=== PATIENT | female | born 1940 | race Hispanic/Latino ===

== ENCOUNTER 2019-08-05 10:14 | Observation (INO) | payer OTHER, MEDICARE ==
[~2019-08-05] VITALS: Ht 142.2 cm; Wt 46.9 kg
[~2019-08-05 10:14] MED LIST: ATOR10TA69 PO; CYCL30DR OP; ESOM40CA54 PO; LISI40TA4 PO; METF-445 PO; RALO60TA13 PO
[2019-08-05 10:57] LABS: CREATININE 0.8 mg/dL (0.5-1.5); POTASSIUM 3.9 mmol/L (3.5-5.1)
[2019-08-05 11:01] LABS: BASOPHILS % (AUTO) 0.5 % (0.0-5.0); EOSINOPHILS % (AUTO) 1.6 % (0.0-8.0); HEMATOCRIT 32.3 % (36-48); LYMPHOCYTES % (AUTO) 16.7 % (21.0-51.0); MEAN CORPUSCULAR HEMOGLOBIN 32.6 pg (27.0-33.0); MEAN CORPUSCULAR HGB CONC 33.8 g/dL (32.0-36.0); MEAN CORPUSCULAR VOLUME 96.4 fL (79-99); MONOCYTES % (AUTO) 9.8 % (3.0-13.0); NEUTROPHILS % (AUTO) 71.4 % (40.0-77.0); NUCLEATED RED BLOOD CELLS 0.1 % (0.0-0.19); PLATELET COUNT (AUTO) 242 K/uL (130-400); RED BLOOD CELL COUNT(AUTO) 3.35 MIL/uL (4.00-5.50); RED CELL DISTRIBUTION WIDTH 15.1 % (11.0-15.5); WHITE BLOOD COUNT (AUTO) 9.8 K/uL (4.8-10.8)
[2019-08-05 11:02] LABS: ALBUMIN 3.1 g/dL (3.5-5.0); BILIRUBIN,TOTAL 0.4 mg/dL (0.2-1.0); TOTAL PROTEIN, SERUM 6.9 g/dL (6.0-8.3)
[2019-08-05 11:07] LABS: APPEARANCE,URINE Clear (CLEAR); BILIRUBIN,URINE Negative (NEGATIVE); COLOR,URINE Yellow (YELLOW); GLUCOSE, URINE (UA) Negative (NEGATIVE); KETONES,URINE Negative (NEGATIVE); LEUKOCYTE ESTERASE ,URINE Negative (NEGATIVE); NITRATE,URINE Negative (NEGATIVE); OCCULT BLOOD,URINE Negative (NEGATIVE); PH,URINE 5.5 (5.0-8.0); PROTEIN,URINE Negative (NEGATIVE); UROBILINOGEN,URINE 0.2 mg/dL (0.2-1.0)
[2019-08-05 11:20] LABS: B-TYPE NATRIURETIC PEPTIDE 275 pg/mL (0-100)
[2019-08-05] MEDS ORDERED: FUROSEMIDE 10 MG/ML 2ML VIAL ONE (11:52)
[2019-08-05] MEDS ORDERED: CEFTRIAXONE SODIUM 1 GM ONE (12:05)
[2019-08-05] MEDS ORDERED: AZITHROMYCIN 500MG+NS 250ML 250 ML IV ONE (12:05)
[2019-08-05] MEDS ORDERED: SODIUM CHLORIDE 0.9% 50 ML IV ONE (12:06)
[2019-08-05] MEDS ORDERED: SODIUM CHLORIDE 0.9% 250 ML IV ONE (13:17)
[2019-08-05 13:28] VITALS: BP 141/59
[2019-08-05] MEDS ORDERED: COMPOUND IV MISC 1 EACH IVSOLN MISC PRN (14:30)
[2019-08-05] MEDS ORDERED: DONE5TAB33 PO (14:40)
[2019-08-05] MEDS ORDERED: ESCI5SOL4 PO (14:40)
[2019-08-05] MEDS ORDERED: PANT40TA25 PO (14:40)
[2019-08-05] MEDS ORDERED: LIDOCAINE HCL-MPF 1% 2ML VIAL IV PRN (14:45)
[2019-08-05] MEDS ORDERED: GLUCAGON 1MG KIT 1 MG ML IM PRN (14:45)
[2019-08-05] MEDS ORDERED: ACETAMINOPHEN 325 MG TAB PO PRN ×2 (14:45)
[2019-08-05] MEDS ORDERED: POTASSIUM CHLORIDE 20MEQ/100ML 100 ML IV PRN (14:45)
[2019-08-05] MEDS ORDERED: LACTULOSE 20 GM/30 ML UDCUP PO PRN (14:45)
[2019-08-05] MEDS ORDERED: GUAIFENESIN-DM 200/20 MG 10 ML PO PRN (14:45)
[2019-08-05] MEDS ORDERED: ONDANSETRON HCL 4 MG/2 ML VIAL IV PRN (14:45)
[2019-08-05] MEDS ORDERED: MAG HYDROX/AL HYDROX/SIMETH ES 30 ML SUSP UDCUP PO PRN (14:45)
[2019-08-05] MEDS ORDERED: POTASSIUM CHLORIDE 10% ELIXIR 20 MEQ/15 ML UDCUP PO PRN (14:45)
[2019-08-05] MEDS ORDERED: NITROGLYCERIN 0.4 MG SL TAB SL PRN (14:45)
[2019-08-05] MEDS ORDERED: DEXTROSE 50%-WATER 50 ML DISP.SYRIN IV PRN (14:45)
[2019-08-05] MEDS ORDERED: DIPHENHYDRAMINE HCL 25 MG CAPSULE PO PRN (14:45)
[2019-08-05] MEDS: AZITHROMYCIN 250 MG in SODIUM CHLORIDE 0.9% 100 ML IV SCH (15:00)
[2019-08-05 15:41] VITALS: BP 123/55
[2019-08-05] MEDS: INSULIN HUMULIN R 100 UNIT/ML 3ML SQ SCH ×2 (16:30→21:00)
[2019-08-05] MEDS: IPRATROPIUM/ALBUTEROL SULFATE 3 ML SOLUTION IH SCH ×2 (18:19→23:05)
[2019-08-05 20:00] VITALS: BP 100/60
[2019-08-05] MEDS: FUROSEMIDE 10 MG/ML 4ML VIAL IV SCH (21:26)
[2019-08-06] VITALS: BP 127/58
[2019-08-06 04:00] VITALS: BP 102/55
[2019-08-06 05:47] LABS: BASOPHILS % (AUTO) 0.7 % (0.0-5.0); EOSINOPHILS % (AUTO) 0.8 % (0.0-8.0); LYMPHOCYTES % (AUTO) 20.1 % (21.0-51.0); MEAN CORPUSCULAR HEMOGLOBIN 32.1 pg (27.0-33.0); MEAN CORPUSCULAR HGB CONC 33.8 g/dL (32.0-36.0); MONOCYTES % (AUTO) 10.7 % (3.0-13.0); NEUTROPHILS % (AUTO) 67.7 % (40.0-77.0); PLATELET COUNT (AUTO) 268 K/uL (130-400); RED BLOOD CELL COUNT(AUTO) 3.26 MIL/uL (4.00-5.50); RED CELL DISTRIBUTION WIDTH 15.5 % (11.0-15.5); WHITE BLOOD COUNT (AUTO) 8.7 K/uL (4.8-10.8)
[2019-08-06 05:52] LABS: CREATININE 0.9 mg/dL (0.5-1.5); POTASSIUM 3.3 mmol/L (3.5-5.1)
[2019-08-06] MEDS: IPRATROPIUM/ALBUTEROL SULFATE 3 ML SOLUTION IH SCH ×4 (06:15→23:27)
[2019-08-06] MEDS: INSULIN HUMULIN R 100 UNIT/ML 3ML SQ SCH ×4 (07:30→21:41)
[2019-08-06 08:00] VITALS: BP 96/52
--- NOTE | 2019-08-06 08:51 | NUR ---
PATIENT UPDATE NO CHEST PAIN, NO SHORTNESS OF BREATH. STARTED COUGHING AGAIN WHEN SHE STARTED DRINKING WATER AFTER A BREATHING TREATMENT. BIBASILAR CRACKLES PER AUSCULTATION, ON LASIX 40 MG IV Q 12 HRS FOR A BNP OF 275. MONITORED CLOSELY FOR BP TRENDS SINCE SHE RUNS IN THE LOW 100'S SYSTOLIC, GETS UP TO THE RESTROOM WITH ASSIST. DAUGHTER STAYED AT THE BEDSIDE LAST NIGHT. K THIS AM 1T 3.3, 20MEQ KCL ELIXIR GIVEN WITH ORANGE JUICE, TOLERATED WELL- PT ON HYPOKALEMIA PROTOCOL.
[2019-08-06] MEDS: CALCIUM 600 + VITAMIN D 400 TABLET PO SCH (10:33)
[2019-08-06] MEDS: PREDNISONE 20 MG TABLET PO SCH (10:33)
[2019-08-06] MEDS: FUROSEMIDE 10 MG/ML 4ML VIAL IV SCH (10:33)
[2019-08-06] MEDS: ENOXAPARIN SODIUM 30 MG/0.3 ML SQ SCH (10:34)
[2019-08-06] MEDS: POTASSIUM CHLORIDE 20 MEQ ERTAB PO PRN ×2 (10:36→21:53)
[2019-08-06 11:54] VITALS: BP 91/55
[2019-08-06] MEDS ORDERED: PHARMACY COMMUNICATION MISC SCH (12:00)
[2019-08-06] MEDS ORDERED: CEFTRIAXONE SODIUM 1 GM IVP SCH (13:15)
[2019-08-06] MEDS: AZITHROMYCIN 250 MG in SODIUM CHLORIDE 0.9% 100 ML IV SCH (13:54)
[2019-08-06 16:00] VITALS: BP 86/60
--- NOTE | 2019-08-06 16:45 | NUR ---
cm note met with patient and states resides at home with daughter tristen, pt uses cane at times for ambulation, no other dme. has provider 26hrs/week. dc plan is back to home. Addendum: 08/06/19 at 1647 by SONIA BURGER CM Amended: Links added.
[2019-08-06 20:21] VITALS: BP 106/55
[2019-08-07 00:31] VITALS: BP 94/50
[2019-08-07 04:43] VITALS: BP 121/64
[2019-08-07 05:41] LABS: BASOPHILS % (AUTO) 0.2 % (0.0-5.0); EOSINOPHILS % (AUTO) 0.1 % (0.0-8.0); HEMATOCRIT 29.9 % (36-48); LYMPHOCYTES % (AUTO) 21.1 % (21.0-51.0); MEAN CORPUSCULAR HEMOGLOBIN 32.4 pg (27.0-33.0); MEAN CORPUSCULAR HGB CONC 33.6 g/dL (32.0-36.0); MEAN CORPUSCULAR VOLUME 96.3 fL (79-99); MONOCYTES % (AUTO) 10.5 % (3.0-13.0); NEUTROPHILS % (AUTO) 68.1 % (40.0-77.0); PLATELET COUNT (AUTO) 247 K/uL (130-400); RED BLOOD CELL COUNT(AUTO) 3.11 MIL/uL (4.00-5.50); RED CELL DISTRIBUTION WIDTH 15.2 % (11.0-15.5); WHITE BLOOD COUNT (AUTO) 10.4 K/uL (4.8-10.8)
[2019-08-07 06:00] LABS: CREATININE 0.9 mg/dL (0.5-1.5); MAGNESIUM 1.4 mg/dL (1.80-2.40); PHOSPHORUS 2.8 mg/dL (2.5-4.9); POTASSIUM 4.5 mmol/L (3.5-5.1)
[2019-08-07] MEDS: IPRATROPIUM/ALBUTEROL SULFATE 3 ML SOLUTION IH SCH ×2 (06:17→11:09)
[2019-08-07] MEDS: INSULIN HUMULIN R 100 UNIT/ML 3ML SQ SCH ×2 (06:36→11:30)
--- NOTE | 2019-08-07 07:30 | NUR ---
NOTE AAOX3. DENIES PAIN OR DISTRESS. WAS SUPPOSED TO GO HOME YESTERDAY ACCORDING TO FAMILY BUT ECHO REPORT WAS NOT OUT. REFER TO CHART FOR RESULTS. POSSIBLE DC HOME TODAY. SHE HAS BEEN AMBULATING IN THE ROOM AND SHE DENIES ANY SOB. BBS SLIGHT COARSENESS TO LOWER LOBES.
[2019-08-07 08:12] VITALS: BP 121/60
[2019-08-07] MEDS ORDERED: FUROSEMIDE 20 MG TABLET PO SCH (09:00)
[2019-08-07] MEDS: PREDNISONE 20 MG TABLET PO SCH (10:39)
[2019-08-07] MEDS: CALCIUM 600 + VITAMIN D 400 TABLET PO SCH (10:39)
[2019-08-07] MEDS: ENOXAPARIN SODIUM 30 MG/0.3 ML SQ SCH (10:39)
--- NOTE | 2019-08-07 11:25 | NUR ---
DYSPHAGIA EVAL COMPLETED. -S/S OF ASPIRATION. RECOMMEND REGULAR TEXTURE, THIN LIQUIDS; PILLS WHOLE WITH LIQUIDS. SAFE SWALLOW PRECAUTIONS OF HEAD AT NEUTRAL POSITION, SLOW RATE, SMALL BITES AND SIPS PUT IN PLACE DURING P.O. ALL QUESTIONS ANSWERED AT THIS TIME. KETTLE FRY COOK OPERATOR COORDINATED CARE WITH NURSE FLORENTIN. NURSE REPORTS Pt HAS BEEN TOLERATING DIET TAKING PILLS WITH NO DIFFICULTY. Addendum: 08/07/19 at 1127 by RACHELE GRANT [facility] Amended: Links added.
[2019-08-07] MEDS ORDERED: MAGNESIUM 2GM PREMIX 50ML 50 ML IV SCH (11:45)
[2019-08-07 12:00] VITALS: BP 102/52
--- NOTE | 2019-08-07 13:19 | NUR ---
RD NOTIFICATION RD CONSULTED DUE TO POOR PO. DIET: HEART HEALTHY. PO INTAKE 75% AND HAS GOOD APPETITE, PER PT. NO COMPLAINTS OF N/V/C/D. NO DIFFICULTIES CHEWING OR SWALLOWING FOOD/LIQUIDS AT THIS TIME. LBM: 08/07. SKIN INTACT, NO EDEMA NOTED. LABS REVIEWED. MEDS REVIEWED. NO SIGNIFICANT WEIGHT CHANGES NOTED. MILD MUSCLE/ FAT LOSS NOTED. RD RECOMMENDS TO CONTINUE CURRENT DIET ENCOURAGE ADEQUATE PO INTAKE AT ALL MEALS RD WILL CONTINUE TO FOLLOW UP NEEDED, THANK YOU. Addendum: 08/07/19 at [address] Amended: Links added.
--- NOTE | 2019-08-07 14:45 | NUR ---
DISCHARGE DISCHARGE INSTRUCTIONS GIVEN TO PATIENT AT THIS TIME. SPOKE TO SURJIT CLEMENTS ABOUT DC HOME MEDS FOR SHE ONLY RESUMED HOME MEDS AND DID NOT FIND ANY SCRIPTS. WAS INFORMED THERE WOULD BE NO PRESCRIPTIONS ONLY RESUME HOME MEDS. INFORMED PATIENT AND FAMILY WELL. STABLE UPON LEAVING. NO SOB OR DISTRESS.
== END 2019-08-07 14:54 | disposition home or self-care (01) ==
LOC: EDH 10:14 → EDHIP 11:50 → 3CH 13:08
PROVIDERS: ADMIT Internal Medicine Critical Care Medicine; ATTEND Internal Medicine Critical Care Medicine
DX: J44.1 Chronic obstructive pulmonary disease with (acute) exacerbation (principal); I11.0 Hypertensive heart disease with heart failure; I50.9 Heart failure, unspecified; E11.9 Type 2 diabetes mellitus without complications; E78.5 Hyperlipidemia, unspecified; M81.0 Age-related osteoporosis without current pathological fracture; E44.1 Mild protein-calorie malnutrition; F03.90 Unspecified dementia, unspecified severity, without behavioral disturbance, psychotic disturbance, mood disturbance, and anxiety; R00.1 Bradycardia, unspecified; E83.42 Hypomagnesemia; E87.5 Hyperkalemia; E87.6 Hypokalemia; Z96.653 Presence of artificial knee joint, bilateral; Z79.899 Other long term (current) drug therapy; Z88.0 Allergy status to penicillin
CPT/HCPCS: 36415 ×3; 71045; 80048 ×2; 80053; 81003; 82948 ×8; 83735 ×2; 83880; 84100; 84484; 85025 ×3; 87040 ×2; 92610; 93005; 93306; 94640 ×8; 94664; 96365; 96366; 96367; 96372 ×2; 96375 ×2; 97116 ×2; 97161; 99284; G0378 ×45; G8978; G8979; G8980; G8981; G8982; G8983; J0456 ×3; J0696 ×2; J1650 ×2; J1815; J1940 ×3; J3475; J7030

== ENCOUNTER 2020-03-10 12:03 | Emergency (ER) | payer OTHER, MEDICARE ==
[2020-03-10] MEDS ORDERED: SODIUM CHLORIDE 0.9% 1000ML 1,000 ML IV ONE (13:34)
[2020-03-10] MEDS ORDERED: PROPOFOL 10 MG/ML 20ML VIAL IV ONE (13:34)
[2020-03-10] MEDS ORDERED: HYDROCODONE/ACETAMINOPHEN 5/325 MG TAB ONE (15:36)
== END 2020-03-10 15:50 | disposition home or self-care (01) ==
LOC: EDH 12:03
DX: S52.501A Unspecified fracture of the lower end of right radius, initial encounter for closed fracture (principal); W18.39XA Other fall on same level, initial encounter; Y93.01 Activity, walking, marching and hiking; Y92.89 Other specified places as the place of occurrence of the external cause; Y99.8 Other external cause status
CPT/HCPCS: 25605; 36415; 73110; 80053; 85610; 85730; 93005; 99285; J2704; J7030

== ENCOUNTER 2020-03-16 | Emergency (ER) | payer OTHER, MEDICARE | END 2020-03-16 21:16 | disposition home or self-care (01) ==

== ENCOUNTER → 2020-11-14 | Outpatient (CLI) | payer OTHER, MEDICARE ==
[~2020-11-14] MED LIST changes: -CYCL30DR OP; +DONE5TAB33 PO; +ESCI5SOL4 PO; -ESOM40CA54 PO; -LISI40TA4 PO; +LISI40TA9 PO; +PANT40TA54 PO
== END | disposition home or self-care (01) ==
LOC: SHCH 08:51
PROVIDERS: ATTEND Internal Medicine Cardiovascular Disease
DX: I08.1 Rheumatic disorders of both mitral and tricuspid valves (principal); R06.09 Other forms of dyspnea
CPT/HCPCS: 93306; 93356

== ENCOUNTER 2022-11-21 12:49 | Emergency (ER) | payer OTHER, MEDICARE ==
[~2022-11-21] VITALS: Ht 154.9 cm; Wt 61.2 kg
[2022-11-21] MEDS ORDERED: TYL2 PO (13:13)
[2022-11-21 14:17] VITALS: BP 162/67
== END 2022-11-21 14:20 | disposition home or self-care (01) ==
LOC: EDH 12:49
DX: S42.291A Other displaced fracture of upper end of right humerus, initial encounter for closed fracture (principal); W18.39XA Other fall on same level, initial encounter; Y93.89 Activity, other specified; Y92.89 Other specified places as the place of occurrence of the external cause; Y99.8 Other external cause status; E78.00 Pure hypercholesterolemia, unspecified; I10 Essential (primary) hypertension; M19.90 Unspecified osteoarthritis, unspecified site; Z79.84 Long term (current) use of oral hypoglycemic drugs; Z79.899 Other long term (current) drug therapy; Z88.0 Allergy status to penicillin
CPT/HCPCS: 73030; 73060

== ENCOUNTER 2022-11-28 23:21 | Emergency (ER) | payer OTHER, MEDICARE ==
[~2022-11-28] VITALS: Ht 149.9 cm; Wt 56.7 kg
[~2022-11-28 23:21] MED LIST changes: +TYL2 PO
[2022-11-29] MEDS ORDERED: IBUP-2070 PO (00:25)
[2022-11-29 00:48] VITALS: BP 164/69
== END 2022-11-29 01:17 | disposition home or self-care (01) ==
LOC: EDH 23:21
DX: S42.291A Other displaced fracture of upper end of right humerus, initial encounter for closed fracture (principal); I10 Essential (primary) hypertension; E78.00 Pure hypercholesterolemia, unspecified; F03.90 Unspecified dementia, unspecified severity, without behavioral disturbance, psychotic disturbance, mood disturbance, and anxiety; Z88.0 Allergy status to penicillin; Z79.899 Other long term (current) drug therapy; Z79.84 Long term (current) use of oral hypoglycemic drugs; X58.XXXA Exposure to other specified factors, initial encounter; Y93.89 Activity, other specified; Y92.89 Other specified places as the place of occurrence of the external cause; Y99.8 Other external cause status
CPT/HCPCS: 73060